=== PATIENT | male | born 1960 | race Caucasian/White ===

== ENCOUNTER 2018-02-21 12:47 | Emergency (ER) | payer MEDICAID ==
[~2018-02-21] VITALS: Ht 177.8 cm; Wt 95.5 kg
[2018-02-21] MEDS ORDERED: HYDR-309 PO (13:05)
[2018-02-21] MEDS ORDERED: METHOCARBAMOL 500 MG TABLET PO ONE (14:45)
[2018-02-21] MEDS ORDERED: KETOROLAC TROMETHAMINE 60 MG/2 ML VIAL IM ONE (14:45)
[2018-02-21 15:00] VITALS: BP 132/80
== END 2018-02-21 16:18 | disposition home or self-care (01) ==
LOC: EMS 12:49
DX: M16.11 Unilateral primary osteoarthritis, right hip (principal); F17.210 Nicotine dependence, cigarettes, uncomplicated; Z79.899 Other long term (current) drug therapy
CPT/HCPCS: 73502; 96372; 99284; J1885

== ENCOUNTER 2019-06-08 07:44 | Emergency (ER) | payer MEDICAID, OTHER ==
[~2019-06-08] VITALS: Ht 188 cm; Wt 100.0 kg
[~2019-06-08 07:44] MED LIST: HYDR-309 PO
[2019-06-08] MEDS ORDERED: HYDROCODONE/ACETAMINOPHEN 5-325 MG TABLET PO ONE (08:00)
[2019-06-08] MEDS ORDERED: KETOROLAC TROMETHAMINE 60 MG/2 ML VIAL IM ONE (08:00)
[2019-06-08 09:15] VITALS: BP 109/61
== END 2019-06-08 09:19 | disposition home or self-care (01) ==
LOC: EMS 07:47
DX: M54.5 Low back pain (principal); G89.29 Other chronic pain; F17.210 Nicotine dependence, cigarettes, uncomplicated; F12.90 Cannabis use, unspecified, uncomplicated
CPT/HCPCS: 72100; 96372; 99283; J1885